=== PATIENT | female | born 2000 | race Caucasian/White ===

== ENCOUNTER 2019-12-16 18:10 | Emergency (ER) | payer OTHER ==
[~2019-12-16] VITALS: Ht 185.4 cm; Wt 65.9 kg
[2019-12-16 18:40] VITALS: BP 131/77
[2019-12-16] MEDS ORDERED: ondansetron 4mg rapidly disintigrating tab PO STA (19:03)
[2019-12-16] MEDS ORDERED: pantoprazole 40mg Tablet.DR PO ONE (19:05)
[2019-12-16] MEDS ORDERED: famotidine 20mg tablet PO ONE (19:05)
[2019-12-16 19:31] LABS: URINE HCG NEGATIVE (NEG)
[2019-12-16 19:49] LABS: CLARITY,URINE SLIGHTLY CLOUDY (Clear); COLOR,URINE YELLOW (Yellow); GLUCOSE, URINE NEGATIVE (Neg); KETONES,URINE NEGATIVE (Neg); LEUKOCYTE ESTERASE ,URINE TRACE (Neg); NITRITES, URINE NEGATIVE (Neg); OCCULT BLOOD,URINE TRACE-INTACT (Neg); PH,URINE 7.5 (4.8-8.0); PROTEIN,URINE 100 mg/dl (Neg); UROBILINOGEN,URINE 0.2 E.U/dL (0.2-1.0)
[2019-12-16 19:50] LABS: UA COLLECTION TYPE CLN CATCH MIDSTREAM
[2019-12-16] MEDS ORDERED: CEPH500C5 PO (20:03)
[2019-12-16 20:07] LABS: BACTERIA,URINE 3+ /HPF (Neg); RBC,URINE 0-2 /HPF (0-2); WBC,URINE 20-30 /HPF (0-4)
[2019-12-16 20:08] LABS: AMORPHOUS PHOSPHATES 1+; MUCUS STRANDS MODERATE /LPF (Neg); SQUAMOUS EPITHELIAL CELL,UR FEW /LPF (FEW)
== END 2019-12-16 20:13 | disposition home or self-care (01) ==
LOC: ER 18:11
DX: N39.0 Urinary tract infection, site not specified (principal); R31.9 Hematuria, unspecified; Z79.899 Other long term (current) drug therapy
CPT/HCPCS: 81001; 81025; 87077; 87088; 87186; 99284

== ENCOUNTER 2019-12-17 22:55 | Emergency (ER) | payer OTHER ==
[~2019-12-17] VITALS: Ht 185.4 cm; Wt 65.9 kg
[~2019-12-17 22:55] MED LIST: CEPH500C5 PO
[2019-12-17 23:39] LABS: BASOPHILS % (AUTO) 0.2 % (0-1); HEMOGLOBIN 14.4 g/dl (12.0-16.0); LYMPHOCYTES # (AUTO) 1.3 X10'3 (1.1-4.8); MEAN PLATELET VOLUME 8.9 FL (7.4-10.4); MONOCYTES # (AUTO) 1.4 X10'3 (0-0.9); MONOCYTES % (AUTO) 8.2 % (2-12); NEUTROPHILS # (AUTO) 13.9 X10'3 (1.8-7.7); WHITE BLOOD COUNT 16.6 X10'3 (4.5-11.0)
[2019-12-17 23:41] LABS: CLARITY,URINE CLEAR (Clear); COLOR,URINE YELLOW (Yellow); GLUCOSE, URINE NEGATIVE (Neg); KETONES,URINE NEGATIVE (Neg); LEUKOCYTE ESTERASE ,URINE SMALL (Neg); NITRITES, URINE NEGATIVE (Neg); OCCULT BLOOD,URINE MODERATE (Neg); PH,URINE 6.5 (4.8-8.0); PROTEIN,URINE TRACE mg/dl (Neg); UROBILINOGEN,URINE 0.2 E.U/dL (0.2-1.0)
[2019-12-17 23:41] LABS: EOSINOPHILS % (AUTO) 0.2 % (0-6); HEMATOCRIT 41.8 % (35.0-45.0); LYMPHOCYTES % (AUTO) 7.9 % (21-51); MEAN CORPUSCULAR HEMOGLOBIN 30.6 PG (27.0-31.0); MEAN CORPUSCULAR HGB CONC 34.4 g/dL (33.0-36.5); MEAN CORPUSCULAR VOLUME 89.1 FL (78-98); NEUTROPHILS % (AUTO) 83.5 % (42-75); PLATELET COUNT 173 X10'3 (140-440); RED BLOOD COUNT 4.69 X10'6 (4.20-5.60); RED CELL DISTRIBUTION WIDTH 13.5 % (11.5-14.5)
[2019-12-17 23:42] LABS: URINE HCG NEGATIVE (NEG)
[2019-12-17 23:46] LABS: UA COLLECTION TYPE CLN CATCH MIDSTREAM
[2019-12-17 23:49] LABS: BACTERIA,URINE NONE SEEN /HPF (Neg); SQUAMOUS EPITHELIAL CELL,UR FEW /LPF (FEW)
[2019-12-17 23:54] LABS: ALANINE AMINOTRANSFERASE 18 U/L (12-78); ALBUMIN/GLOBULIN RATIO 1.1 (1.1-1.5); ALKALINE PHOSPHATASE 91 IU/L (20-180); ANION GAP 6 (8-16); ASPARTATE AMINO TRANSFERASE 12 U/L (10-37); BILIRUBIN,TOTAL 0.8 MG/DL (0.1-1.0); BLOOD UREA NITROGEN 6 MG/DL (7-18); BUN/CREATININE RATIO 8.6 (6.6-38.0); CALCIUM 8.7 MG/DL (8.5-10.1); CHLORIDE 103 MMOL/L (99-107); GLUCOSE 128 MG/DL (70-104); LIPASE 71 U/L (73-393); POTASSIUM 3.7 MMOL/L (3.5-5.1); SODIUM 140 MMOL/L (135-145); TOTAL CARBON DIOXIDE 30.7 MMOL/L (24-32); TOTAL PROTEIN 7.5 G/DL (6.4-8.2); eGFR > 90 ML/MIN
[2019-12-18 00:06] LABS: PLATELET ESTIMATE NORMAL; TOTAL CELLS COUNTED 100
[2019-12-18] MEDS ORDERED: ondansetron/PF 4mg/2ml inj IV ONE (00:45)
[2019-12-18] MEDS ORDERED: ketorolac trometh. 30mg/ml inj. IV ONE (00:45)
[2019-12-18] MEDS ORDERED: morphine 4 MG/ML inj SYRINge IV ONE (00:45)
[2019-12-18] MEDS ORDERED: normal saline 1000ML IV soln IVB ONE (00:45)
[2019-12-18] MEDS ORDERED: iohexol 300mg/ml 100ml inj. ONE (00:55)
--- NOTE | 2019-12-18 01:25 | NUR ---
Pt. to CT
[2019-12-18] MEDS ORDERED: CefTRIAXone 2gm/D5W 50ml 50 ML IV ONE (02:10)
[2019-12-18 02:39] VITALS: BP 106/68
== END 2019-12-18 03:16 | disposition home or self-care (01) ==
LOC: ER 22:56
DX: N30.90 Cystitis, unspecified without hematuria (principal); R11.2 Nausea with vomiting, unspecified; Z79.2 Long term (current) use of antibiotics
CPT/HCPCS: 36415; 74177; 80053; 81001; 81025; 83690; 84145; 85025; 87088; 96361; 96365; 96375; 99285; J0696; J1885; J2270; J2405; J7030; Q9967; 99283